=== PATIENT | female | born 1990 | race Caucasian/White ===

== ENCOUNTER 2020-03-07 14:41 | Emergency (ER) | payer OTHER ==
[~2020-03-07] VITALS: Ht 170.2 cm; Wt 94.3 kg
[2020-03-07] MEDS ORDERED: SERTRALINE HCL100 MG PO (15:05)
[2020-03-07] MEDS ORDERED: LAMICTAL150 MG PO (15:05)
[2020-03-07] MEDS ORDERED: DORYX MPC120 MG PO (15:05)
[2020-03-07] MEDS ORDERED: LOMAIRA8 MG PO (15:06)
[2020-03-07 15:53] LABS: URINE BILIRUBIN NEGATIVE (Negative); URINE BLOOD 2+ (Negative); URINE CLARITY CLEAR; URINE COLOR YELLOW; URINE GLUCOSE-RANDOM NEGATIVE (Negative); URINE KETONES NEGATIVE (Negative); URINE LEUKOCYTES-REFLEX NEGATIVE (Negative); URINE NITRITE-REFLEX NEGATIVE (Negative); URINE PROTEIN NEGATIVE (Negative); URINE SPECIFIC GRAVITY >= 1.030 (1.005-1.030); URINE UROBILINOGEN 0.2 E.U./dl (0.2-1.0)
[2020-03-07 15:55] LABS: ABSOLUTE MONOCYTES 0.4 thou/uL (0.0-1.2); ABSOLUTE NEUTROPHILS 4.6 thou/uL (1.6-8.1); BASOPHILS 0.5 %; HEMATOCRIT 37.4 % (37.0-47.0); HEMOGLOBIN 12.9 gm/dL (12.0-15.0); LYMPHOCYTES 28.8 %; MCH 31.8 pg (26.0-34.0); MCHC 34.5 g/dL (28.0-37.0); MCV 92.3 fL (80.0-100.0); MPV 8.2 fl. (7.2-11.1); NUCLEATED RBCS 0 /100WBC; PLATELET COUNT* 293 thou/uL (150-400); POLYS 64.7 %; RBC 4.05 mil/uL (4.20-5.00); RDW-CV 13.1 % (10.5-14.5); WBC 7.1 thou/uL (4.0-11.0)
[2020-03-07 16:01] LABS: CALCIUM 8.5 mg/dL (8.5-10.1); CREATININE 0.9 mg/dL (0.6-1.3); POTASSIUM 3.4 mmol/L (3.5-5.1)
[2020-03-07 16:02] LABS: APTT 27.8 Seconds (25.0-31.3); PROTIME 10.5 Seconds (9.20-11.50)
[2020-03-07 16:05] LABS: BACTERIA-REFLEX None Seen /HPF (None Seen); CASTS None Seen /LPF (None Seen); CRYSTALS None Seen /LPF (None Seen); MUCUS 4-6 Moderate strn/LPF (None Seen); SQUAMOUS 4-10 Moderate /LPF (0-3); URINE RBC 0-2 Rare /HPF (0-2); URINE WBC-REFLEX None Seen /HPF (0-5)
[2020-03-07 16:05] LABS: ALBUMIN 3.9 g/dL (3.4-5.0); TOTAL BILIRUBIN 0.3 mg/dL (<0.1-1.0); TOTAL PROTEIN 7.1 g/dL (6.4-8.2)
[2020-03-07] MEDS ORDERED: NORCO 5-325 TA1 EAC2 PO (17:53)
[2020-03-07] MEDS ORDERED: ONDANSETRON HCL4 M2 PO (17:53)
[2020-03-07] MEDS ORDERED: BENTYL 20 MG TA20 M1 PO (17:53)
[2020-03-07] MEDS ORDERED: PROCTOCORT30 MG RECTAL (17:54)
[2020-03-07 18:47] VITALS: BP 118/88
== END 2020-03-07 18:48 | disposition home or self-care (01) ==
LOC: M.ERS 14:41
PROVIDERS: Nurse Practitioner Family
DX: K64.4 Residual hemorrhoidal skin tags (principal); K59.00 Constipation, unspecified; R19.7 Diarrhea, unspecified; F41.9 Anxiety disorder, unspecified; F32.9 Major depressive disorder, single episode, unspecified; Z88.2 Allergy status to sulfonamides

== ENCOUNTER 2020-07-16 11:41 | Emergency (ER) | payer OTHER ==
[~2020-07-16] VITALS: Ht 170.2 cm; Wt 86.2 kg
[~2020-07-16 11:41] MED LIST: BENTYL 20 MG TA20 M1 PO; DORYX MPC120 MG PO; LAMICTAL150 MG PO; LOMAIRA8 MG PO; NORCO 5-325 TA1 EAC2 PO; ONDANSETRON HCL4 M2 PO; PROCTOCORT30 MG RECTAL; SERTRALINE HCL100 MG PO
[2020-07-16] MEDS ORDERED: FLEXERIL PO (13:31)
[2020-07-16] MEDS ORDERED: IBU600 MG PO (13:31)
[2020-07-16] MEDS ORDERED: ZOFRAN ODT4 MG PO (13:31)
[2020-07-16 13:41] VITALS: BP 130/70
== END 2020-07-16 13:41 | disposition home or self-care (01) ==
LOC: M.ERS 11:41
DX: S39.012A Strain of muscle, fascia and tendon of lower back, initial encounter (principal); S16.1XXA Strain of muscle, fascia and tendon at neck level, initial encounter; Z88.2 Allergy status to sulfonamides; V89.2XXA Person injured in unspecified motor-vehicle accident, traffic, initial encounter; Y93.89 Activity, other specified; Y92.89 Other specified places as the place of occurrence of the external cause; Y99.8 Other external cause status